=== PATIENT | male | born 1975 | race African-American/Black ===

== ENCOUNTER 2023-10-29 05:19 | Emergency (ER) | payer MEDICARE, SELFPAY ==
--- NOTE | ~2023-10-29 | XR_ITS ---
XR chest 2V INDICATION: Shortness of breath TECHNIQUE: 2 view chest. FINDINGS: No prior studies for comparison. There is mild bilateral interstitial prominence and peribronchial cuffing. There is no focal consoli dation, pleural effusion, or pneumothorax. The cardiomediastinal silhouette is normal. IMPRESSION: 1. Findings most consistent with bronchiolitis versus an atypical or viral pneumonia. Reviewed, dictated and finalized at location A. [facility] IMPRESSION: 1. Findings most consistent with bronchiolitis versus an atypical or viral pne [facility].
--- NOTE | ~2023-10-29 | XR_ITS ---
XR knee RT 3V 10/29/2023 06:26 Indication: Right knee pain Procedure: 4 views right knee Comparison: No prior studies for comparison. Findings: No fracture, subluxation or dislocation. No joint effusion. No foreign bodies. Impression: 1: No acute bone or joint abnormality. Reviewed, dictated and finalized at location A. I[employer] MARKET[employer] Impression: 1: No acute bone or joint abnormality.
[2023-10-29 05:25] VITALS: BP 127/57; PULSE 55; RESP 14; TEMP 36.1; O2SAT 100
--- NOTE | 2023-10-29 05:51 | ECG_ITS ---
Measurements Intervals [place] Rate: 68 P: 55 FL: 171 QRS: -41 QRSD: 95 T: 27 QT: 414 QTc: 441 Interpretive Statements SINUS RHYTHM LEFT AXIS DEVIATION DELAYED PRECORDIAL R/S TRANSITION BASELINE ARTIFACT- I, III, AVL, V1-V2 BORDERLINE ECG NO PREVIOUS ECG AVAILABLE FOR COMPARISON Electronically Signed On 10-29-2023 6:54:11 LICENSED SURVEYOR by Carlos Long D.O.
[2023-10-29 05:52] VITALS: PULSE 63; O2SAT 100
[2023-10-29 05:53] VITALS: O2SAT 100
[2023-10-29 06:03] VITALS: BP 117/64; PULSE 60; RESP 19; O2SAT 100
[2023-10-29 06:04] LABS: Basophils Percent Auto 0.3 % (0.2-1.2); Eosinophils Absolute Auto 0.1 K/mm3 (0-0.3); Eosinophils Percent Auto 0.6 % (0-4.4); Hematocrit 39.9 % (42.0-52.0); Hemoglobin 12.7 g/dL (14.0-18.0); Immature Granulocyte Absolute 0.03 K/mm3 (0.00-0.031); Immature Granulocyte Percent A 0.3 % (0-0.5); Lymphocytes Absolute Auto 1.59 K/mm3 (0.9-3.2); Lymphocytes Percent Auto 15.2 % (18.3-44.2); Mean Corpuscular HGB Conc 31.8 g/dl (32-36); Mean Corpuscular Hemoglobin 26.7 pg (26-34); Mean Platelet Volume 9.2 fl (7.4-10.4); Monocytes Absolute Auto 0.8 K/mm3 (0.1-0.6); Monocytes Percent Auto 7.4 % (2.6-8.5); Neutrophils Percent Auto 76.2 % (45.5-73.1); Platelet Count Result 313 k/mm3 (150-375); Red Blood Count 4.75 M/mm3 (4.6-6.20); Red Cell Distribution Width 14.5 % (11.5-14.5); White Blood Count 10.5 K/mm3 (4.5-10.0)
[2023-10-29 06:13] LABS: Lactic Acid Reflex 0.7 mmol/L (0.7-2.0)
[2023-10-29 06:14] LABS: Alanine Aminotransferase 25 U/L (6-50); Albumin Level 4.5 g/dL (3.5-5.1); Alkaline Phosphatase 79 U/L (38-126); Anion Gap 9 mmol/L (8-16); Aspartate Amino Transferase 40 U/L (17-59); Bilirubin,Total 0.5 mg/dL (0.2-1.3); Blood Urea Nitrogen 13 mg/dL (9-20); Calcium 9.4 mg/dL (8.4-10.2); Carbon Dioxide 25 mmol/L (22-30); Chloride 106 mmol/L (98-107); Estimated CRCL calculation 121 ml/min; Estimated Glomerular Filt Rate > 60; Glucose 91 mg/dL (65-110); Potassium 4.2 mmol/L (3.4-5.0); Sodium 140 mmol/L (137-145)
--- NOTE | 2023-10-29 06:34 | ED.GENADULT ---
HPI - General Adult General Chief complaint: Shortness of Breath/Dyspnea Stated complaint: sob, left flank pain Time Seen by Provider: 10/29/23 05:51 History of Present Illness HPI narrative: patient is a 48-year-old gentleman who presents emergency department with chief complaint of shortness of breath the patient states that he was walking from [place] to [place] and while walking he felt somewhat winded the patient reports he has history of asthma and states that he would like something to eat and once money for a bus pass from the hospital the patient reports that he is currently not short of breath and also reports that he has pain in his right. Related Data Allergies Allergy/AdvReac Type Severity Reaction Status Date / Time No Known Allergies Allergy Verified 10/29/23 05:29 Review of Systems Review of Systems: A 10 system review of systems was completed on the patient and is negative except for what is stated in the HPI. Nursing and ancillary documentation was reviewed. Exam Narrative: GENERAL: Well-appearing, well-nourished, and in no acute distress. HEAD: Normocephalic, atraumatic. EYES: PERRLA and EOMI. ENT: Nares clear, no rhinorrhea or epistaxis. Mucous membranes moist. NECK: Supple. CHEST: Clear to auscultation. No respiratory distress. HEART: Regular rate and rhythm. No murmur heard. Normal peripheral pulses. ABDOMEN: Soft, nontender, nondistended, normal active bowel sounds. EXTREMITIES: Normal range of motion. No edema. Mild tenderness in the right knee, no deformity SKIN: Warm, dry, no rash. NEURO: No focal deficits. Alert and oriented x3. PSYCH: Normal mood and affect. Course Vital Signs Vital signs: Vital Signs Temperature 36.1 C L 10/29/23 05:25 Pulse Rate 55 L 10/29/23 05:25 Respiratory Rate 14 10/29/23 05:25 Blood Pressure 127/57 L 10/29/23 05:25 Pulse Oximetry 100 10/29/23 05:25 Oxygen Delivery Room Air 10/29/23 05:25 Temperature 36.1 C L 10/29/23 05:25 Pulse Rate 60 10/29/23 06:03 Respiratory Rate 19 10/29/23 06:03 Blood Pressure 117/64 10/29/23 06:03 Pulse Oximetry 100 10/29/23 06:03 Oxygen Delivery Room Air 10/29/23 05:53 Medical Decision Making MDM Narrative Medical decision making narrative: differential diagnosis includes pneumonia, knee sprain, electrolyte abnormality, laboratory studies were obtained which were within normal limits. Chest x-ray showed a viral pattern but no focal infiltrate knee x-ray showed no evidence of fracture EKG showed no acute ischemic changes Vital Signs Vital Signs: Vital Signs Temperature 36.1 C L 10/29/23 05:25 Pulse Rate 55 L 10/29/23 05:25 Respiratory Rate 14 10/29/23 05:25 Blood Pressure 127/57 L 10/29/23 05:25 Pulse Oximetry 100 10/29/23 05:25 Oxygen Delivery Room Air 10/29/23 05:25 Temperature 36.1 C L 10/29/23 05:25 Pulse Rate 60 10/29/23 06:03 Respiratory Rate 19 10/29/23 06:03 Blood Pressure 117/64 10/29/23 06:03 Pulse Oximetry 100 10/29/23 06:03 Oxygen Delivery Room Air 10/29/23 05:53 Lab Data 10/29/23 05:56 10/29/23 05:56 Labs: Lab Results 10/29/23 Range/Units 05:56 WBC 10.5 H (4.5-10.0) K/mm3 RBC 4.75 (4.6-6.20) M/mm3 Hgb 12.7 L (14.0-18.0) g/dL Hct 39.9 L (42.0-52.0) % MCV 84.0 (80-100) fl MCH 26.7 (26-34) pg MCHC 31.8 L (32-36) g/dl RDW 14.5 (11.5-14.5) % Plt Count 313 (150-375) k/mm3 MPV 9.2 (7.4-10.4) fl Immature Gran % (Auto) 0.3 (0-0.5) % Neut % (Auto) 76.2 H (45.5-73.1) % Lymph % (Auto) 15.2 L (18.3-44.2) % [place] % (Auto) 7.4 (2.6-8.5) % Eos % (Auto) 0.6 (0-4.4) % Baso % (Auto) 0.3 (0.2-1.2) % Lymph # (Auto) 1.59 (0.9-3.2) K/mm3 [place] # (Auto) 0.8 H (0.1-0.6) K/mm3 Eos # (Auto) 0.1 (0-0.3) K/mm3 Baso # (Auto) 0.0 (0.0-0.1) K/mm3 Abs Immat Gran (auto) 0.03 (0.00-0.031) K/mm3 Absolute Neuts (auto) 8.0 H (1.3-6.
== END 2023-10-29 07:01 | disposition home or self-care (01) ==
PROVIDERS: Emergency Provider Emergency Medicine
DX: J20.8 Acute bronchitis due to other specified organisms (principal); M25.561 Pain in right knee; M25.511 Pain in right shoulder; J45.909 Unspecified asthma, uncomplicated; R94.31 Abnormal electrocardiogram [ECG] [EKG]
CPT/HCPCS: 36415; 71046; 73562; 80053; 83605; 85025; 93005; 99284